=== PATIENT | female | born 1980 | race Two or more races ===

== ENCOUNTER 2025-05-05 16:14 | Emergency (ER) | payer MEDICAID, SELFPAY ==
[2025-05-05 16:29] VITALS: BP 118/81; PULSE 88; RESP 20; TEMP 37; O2SAT 95
--- NOTE | 2025-05-05 16:34 | PD.EDADULT ---
ED General RME/HPI General Chief complaint: General Adult/Misc Complain Stated complaint: RIGHT RIB PAIN Time Seen by Provider: 05/05/25 16:32 Arrival date/time: 05/05/25 16:14 44-year-old female reports with complaints of right side chest pain. Patient states that she lifted heavy object and felt a pop sensation around the right riibs. Patient states she has broken those ribs in the past and the sensation and sound similar to when she did break the rib. She states that she has some episodes of shortness of breath but she is uncertain if it is due to the injury or if it is anxiety. Patient also denies any bruising or swelling nausea or vomiting or abdominal pain. Patient also states she has not taken any medications for the injury Limitations: no limitations Related Data Home Medications ?Medication ?Instructions ?Recorded ?Confirmed quetiapine 300 mg tablet 300 mg PO 1XD 05/15/22 05/15/22 Previous Rx's ?Medication ?Instructions ?Recorded meclizine 25 mg tablet 25 mg PO QDAY PRN dizziness #10 05/15/22 tabs ondansetron 4 mg disintegrating 4 mg PO Q8H #14 tabs 05/15/22 tablet ondansetron 4 mg disintegrating 4 mg PO Q8H PRN nausea and 11/13/23 tablet vomiting #14 tabs Allergies Allergy/AdvReac Type Severity Reaction Status Date / Time No Known Allergies Allergy Verified 05/05/25 16:16 Review of Systems Constitutional Constitutional: Denies chills and Denies fever(s) Cardiovascular Cardiovascular: Reports chest pain and Reports dyspnea Respiratory Respiratory: Denies cough and Reports dyspnea Gastrointestinal Gastrointestinal: Denies abdominal pain, Denies nausea and Denies vomiting Musculoskeletal Musculoskeletal: Denies back pain and Denies deformity Integumentary/Breasts Skin/Breast: Denies unusual bruising and Denies wounds Past Medical History Past Medical History NEUROLOGIC: Negative Neurological Disorders or Seizures CARDIAC: Negative Cardiac Disorders or Congestive Heart Failure RESPIRATORY: Positive Asthma and Bronchitis; Negative Chronic Obstructive Pulmonary Disease (COPD) GASTROINTESTINAL: Positive Gastrointestinal Disorders and Gall Bladder Disease; Negative Hepatitis or Colorectal Cancer GENITOURINARY: Negative Genitourinary Disorders, Renal Disease or Prostate Cancer REPRODUCTIVE: Positive Previous Pregnancies; Negative Breast Cancer or Testicular Cancer MUSCULOSKELETAL: Negative Musculoskeletal Disorders or Bone Cancer ENDOCRINE: Negative Endocrine Disorders, Diabetes Mellitus Type 1 or Diabetes Mellitus Type 2 HEMATOLOGIC: Positive Blood Disorders and Anemia; Negative Sickle Cell Disease PSYCHO/SOCIAL: Positive Post Traumatic Stress Disorder OTHER HISTORY: Positive Hospitalization, Blood Transfusions and Chicken Pox; Negative Autoimmune Disease, Down Syndrome, Developmental Delay, Shingles, Falls, Blood Transfusion Reaction, Anesthesia Reactions, Organ Transplant, Chemotherapy, Radiation Therapy, Hyperbaric Therapy, MRSA, VRSA, Vancomycin-Resistant Enterococci, Human Immunodeficiency Virus (HIV), Measles, Mumps, Rubella ([place] Measles), Pertussis, Clostridium Difficile, Breast Cancer, Cervical Cancer, Colorectal Cancer, Lung Cancer, Ovarian Cancer, Prostate Cancer or Testicular Cancer Family History FAMILY HISTORY: Positive Family Surgery; Negative Family Psychiatric Problems, Family Respiratory Disorders, Family Cardiac Disorders, Family Gastrointestinal Problems, Family Cancer or Family Anesthesia Reaction Surgical History SURGICAL: Positive Hysterectomy; Negative Organ Transplant Social History SMOKING STATUS: Never smoker SUBSTANCE USE: does not use ED Exam General Limitations: Present no limitations General appearance: Present alert and in no apparent distress Chest Chest inspection: Present normal inspection, symmetric chest wall rise and tenderness (right 5-9 rib but no deformity, brusing or swelling noted) Respiratory Respiratory exam: Present normal lung sounds bilaterally; Absent respiratory distress, wheezes, stridor, accessory muscle use or prolonged expiratory phase Cardiovascular Cardiovascular exam: Present regular rate, normal rhythm and normal heart sounds Abdominal Exam Abdominal exam: Present soft and normal bowel sounds Back Exam Back exam: Present normal inspection and full ROM Neurological Exam Neurological exam: Present alert, oriented X3 and CN II-XII intact Psychiatric Psychiatric exam: Present normal affect and normal mood Skin Skin exam: Present warm, dry, intact and normal color Course Course Course Narrative: [facility] [address] [place] [address] [facility] Report Signed Patient: SAVANNA RIVAS [facility]. Record#: [id number] Birthdate: 1980 Age/Sex: 44 / F Location: [facility] Attending Dr: Ordering Physician: Kwasi Cordova PA-C Date of Service: 05/05/25 Procedure(s): XR ribs RT min 3V w CXR1V Accession Number(s): [id number] cc: Les Greer MD; NO PRIMARY/FAMILY,PHYSICIAN; Kwasi Cordova PA-C~ EXAMINATION: Right ribs with upright PA chest 5 views TECHNIQUE: Upright PA chest, AP, RPO, LPO, coned AP lower right ribs total 5 views Date and time: May 05, 2025, 1631 hours INDICATIONS: Lifting injury yesterday, patient heard a pop in the chest followed by right rib pain FINDINGS: Normal heart size No pneumothorax Moderate osteopenia No acute rib fractures IMPRESSION: No pneumothorax pulmonary contusion or hemothorax No acute rib fractures Dictated By: Les Greer MD Signed By: <Electronically signed by Les Greer MD in OV> 05/05/251658 DD/ 53 TD/TT: 05/05/251653 [employer] Tender: HAIDER Quality Measures none Orders Category Date Time Status XR ribs RT min 3V w CXR1V Stat Exams 05/05/25 16:34 Completed Vital Signs Vital signs: Vital Signs Temperature 98.6 F 05/05/25 16:29 Pulse Rate 88 05/05/25 16:29 Respiratory Rate 20 05/05/25 16:29 Blood Pressure 118/81 05/05/25 16:29 Pulse Oximetry (%) 95 05/05/25 16:29 Oxygen Delivery Method Room Air 05/05/25 16:29 Discharge Plan Plan Patient Disposition: HOME (Self Care) Prescriptions/Referrals Prescriptions/Med Rec: No Action quetiapine 300 mg tablet 300 mg PO 1XD Patient Comments: TAKE 1 TABLET BY MOUTH EVERYDAY AT BEDTIME meclizine 25 mg tablet 25 mg PO QDAY PRN (Reason: dizziness) Qty: 10 0RF ondansetron 4 mg tablet,disintegrating 4 mg PO Q8H Qty: 14 0RF ondansetron 4 mg tablet,disintegrating 4 mg PO Q8H PRN (Reason: nausea and vomiting) Qty: 14 0RF Referrals: No Primary/Family,Physician [Primary Care Provider] - In 1 week Problem List Clinical Impression: Sprain of ribs Patient/Caregiver Discharge Instructions Discharge Activity: activity as tolerated Education Materials: ED Air Bag Contact Injury Additional Instructions: Your pain is caused by strain of your muscle tissue in your chest. Applying ice, and use medications such as Motrin or Tylenol as directed will help decrease your pain. Try to avoid repetitive lifting or lifting, pushing or pulling over 5 pounds for 5-7 days. Be sure to hydrate well, and follow with your primary care provider if symptoms do not improve in 5 to 7 days. Print Language: Indonesian Stand Alone Forms: Mally Award Info., Patient Portal Info Letter
== END 2025-05-05 17:35 | disposition home or self-care (01) ==
PROVIDERS: Emergency Provider Emergency Medicine
DX: S23.41XA Sprain of ribs, initial encounter (principal); X50.0XXA Overexertion from strenuous movement or load, initial encounter
CPT/HCPCS: 71101; 99283